=== PATIENT | female | born 1970 | race Caucasian/White ===

== ENCOUNTER 2023-02-16 11:45 | Emergency (ER) | payer OTHER, BC, SELFPAY ==
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
[2023-02-16 11:57] VITALS: BP 124/75; PULSE 70; RESP 20; TEMP 36.4; O2SAT 99
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
[2023-02-16] MEDS: ACETAMINOPHEN 500 MG TABLET 1000 MG PO (14:43)
[2023-02-16] MEDS: KETOROLAC 30 MG/ML VIAL (*BKC) IM (14:44)
[2023-02-16 14:47] VITALS: BP 125/95; PULSE 75; RESP 18; O2SAT 100
[2023-02-16 15:49] VITALS: BP 99/74; PULSE 84; RESP 18; O2SAT 97
== END 2023-02-16 15:51 | disposition home or self-care (01) ==
PROVIDERS: Emergency Provider Physician Assistant; PCP Family Medicine
DX: S76.012A Strain of muscle, fascia and tendon of left hip, initial encounter (principal); V49.40XA Driver injured in collision with unspecified motor vehicles in traffic accident, initial encounter
CPT/HCPCS: 73502; 96372; 99283; A9270; J1885

== ENCOUNTER 2024-05-29 12:50 | Outpatient (CLI) | payer BC, SELFPAY ==
--- OUTSIDE RECORDS SUMMARY | 2024-05-29 13:11 | XMS_ITS | Clinical Summary ---
Author Organization [place] [id number] [facility] Address [address] [place] [address] Care Team Providers Care Accounting Administrator Name Role Phone Vladimir Rodríguez MD Primary Care Provider [phone] Allergies No known active allergies Medications No known medications Active Problems No known active problems Social History Tobacco Use Types Packs/Day Years Used Date Smoking Tobacco: Never Tobacco Cessation:Counseling Given: Not Answered AUDIT-C Answer Date Recorded Q1: How often do you have a drink containing alc ohol? 2-4 times a month 03/22/2023 Q2: How many drinks containi ng alcohol do you have on a typical day when you are drinking? 1 or 2 03/22/2023 Q3: How often do you have si x or more drinks on one occasion? Never 03/22/2023 Personal Safety Answer Date Recorded Have you ever been in or are you currently in a harmful physical or emotional relationship or is someone making you feel afraid or unsafe? Denies 03/22/2023 Comments No Sex and Gender Information Value Date Recorded Sex Assigned at Not on file Legal Sex Female 12:55 PM DESIGN INSERTER Gender Identity Female 07/04/2023 3:14 PM CDT Sexual Orientation Straight 07/04/2023 3: 14 PM CDT Obstetrics History Last Filed Vital Signs Vital Sign Reading Time Taken Comments Blood Pressure 103/63 03/22/2023 11:45 AM DESIGN INSERTER Pulse 72 03/22/2023 11:45 AM DESIGN INSERTER Temperature 36.2 C (97.2 F) 03/22/2023 11:23 AM DESIGN INSERTER Respiratory Rate 22 03/22/2023 11:45 AM DESIGN INSERTER Oxygen Saturation 100% 03/22/2023 11:45 AM DESIGN INSERTER Inhaled Oxygen Concentration - - Weight 59 kg (130 lb) 03/22/2023 8:42 AM DESIGN INSERTER Height 157.5 cm (5' 2 ) 03/22/2023 8:42 AM DESIGN INSERTER Body Mass Index 23.78 03/22/2023 8:42 AM DESIGN INSERTER Plan of Treatment Health Maintenance Due Date Last Done Comments Cervical Cancer Screening 1970 Depression Screening 1970 Hepatitis C Screening 1970 DTaP/Tdap/Td Vaccine (1 - Tdap) 06/19/1982 Hepatitis B Screening 06/19/1989 Regular Well Visit/Exam 18-64 06/19/1989 Zoster Vaccine (1 of 2) 06/19/2021 Covid-19 Vaccine ( season) 2023 12/08/2020, 11/10/2020 Influenza Vaccine (#1) 2023 12/24/2019 Breast Cancer Screening-Mammogram 02/03/2025 02/04/2024, 01/17/2023, 12/14/2021, Additional history exists Colon Cancer Screening-Colonoscopy 03/22/2033 03/22/2023 Pneumococcal vaccine <65 Aged Out No longer eligible based on patient's age to complete this topic Procedures Procedure Name Priority Date/Time Associated Diagnosis Comments SCREENING MAMMOGRAM BILATERAL W STEVEN Schedule Routine, Read Routine (OP Routine) 02/04/2024 11:46 AM DESIGN INSERTER Screening mammogram, encounter for COLONOSCOPY 03/22/2023 10:39 AM DESIGN INSERTER from Last 3 Months or Most Recently Relevant to Health Maintenance Results * Screening Mammogram Bilateral W Steven (02/04/2024 11:46 AM DESIGN INSERTER) Anatomical Region Laterality Modality Breast Bilateral Mammography Narrative 02/05/2024 12:10 PM DESIGN INSERTER Mammogram Technique: Bilateral Digital Breast Tomosynthesis, Bilateral C-view 2D Screening mammogram. Views obtained: bilateral craniocaudal and bilateral mediolateral oblique. Computer Aided Detection was performed. Mammogram Findings: The present examination has been compared to prior imaging studies performed at [facility] on 02/18/2019, 12/14/2021 and 01/17/2023. There are scattered areas of fibroglandular density. There is no suspicious abnormality in either breast. Impression: There is no mammographic evidence of malignancy. Annual screening mammography is recommended. OVERALL FINAL ASSESSMENT: BI-RADS CATEGORY 1: Negative. Procedure Note Isi Morgan MD - 02/05/2024 Mammogram Technique: Bilateral Digital Breast Tomosynthesis, Bilateral C-view 2D Screening mammogram. Views obtained: bilateral craniocaudal and bilateral mediolateral oblique. Computer Aided Detection was performed. Mammogram Findings: The present examination has been compared to prior imaging studies performed at [facility] on 02/18/2019, 12/14/2021 and 01/17/2023. There are scattered areas of fibroglandular density. There is no suspicious abnormality in either breast. Impression: There is no mammographic evidence of malignancy. Annual screening mammography is recommended. OVERALL FINAL ASSESSMENT: BI-RADS CATEGORY 1: Negative. us Self Screening Mammogram IMG MAMMO PROCEDURES Fi nal Result * COLONOSCOPY (03/22/2023 10:39 AM DESIGN INSERTER) Anatomical Region Laterality Modality Other Narrative Procedure Note Ruma Arce MD - 03/22/2023 10:39 AM CST ENDOSCOPY LAB Patient Name: Ann Marie Cintron Procedure Date: 03/22/2023 10:39AM Date of : 1970 Admit Type: Outpatient Age: 52 Gender: Female Attending MD: Ruma Arce M.D. Room: [facility] ENDOSCOPY ROOM 01 Note Status: Finalized Procedure: Colonoscopy Indications: Screening for colorectal malignant neoplasm, Thisis the patient's first colonoscopy Providers: Ruma Arce M.D. Referring MD: Presley Hooper M.D. Medicines: Monitored Anesthesia Care Complications: No immediate complications. Estimated Blood Loss: Estimated blood loss was minimal. Procedure: Pre-Anesthesia Assessment: - Prior to the procedure, a History and Physicalwas performed, and patient medications, allergies and sensitivities were reviewed. The patient'stolerance of previous anesthesia was reviewed. - Immediately prior to administration ofmedications, the patient was re-assessed for adequacy to receive sedatives. The benefits, risks and alternatives of theprocedure and sedation were discussed and informed consentwas obtained. All questions were answered. Please referto the signed informed consent document in the medical record. The scope was passed under direct vision.The [id number] was introduced through the anusand advanced to the terminal ileum. The colonoscopy was performed without difficulty. The quality of thebowel preparation was evaluated using the BBPS (BostonBowel Preparation Scale) with scores of: Right Colon = 3, Transverse Colon = 3 and Left Colon = 3 (entiremucosa seen well with no residual staining, smallfragments of stool or opaque liquid). The total BBPS score equals 9. Findings: The perianal and digital rectal examinations were normal. The terminal ileum appeared normal. Retroflexion in the right colon was performed. Two sessile polyps were found in the transverse colon and ascending colon. The polyps were 2 to 3 mm in size. These polyps were removedwith a jumbo cold forceps. Resection and retrieval were complete. Two sessile polyps were found in the descending colon. The polypswere 4 to 8 mm in size. These polyps were removed with a cold snare.Resection and retrieval were complete. A 12 mm polyp was found in the sigmoid colon. The polyp was semi-sessile. The polyp was removed with a cold snare. Resection and retrieval were complete. For hemostasis, two hemostatic clips were successfully placed. There was no bleeding at the end of theprocedure. The exam was otherwise without abnormality on direct and retroflexion views. The retroflexed view of the distal rectum and anal verge was normaland showed no anal or rectal abnormalities. Impression: - The examined portion of the ileum was normal. - Two 2 to 3 mm polyps in the transverse colon andin the ascending colon, removed with a jumbo cold forceps. Resected and retrieved. - Two 4 to 8 mm polyps in the sigmoid colon and inthe descending colon, removed with a cold snare.Resected and retrieved. - One 12 mm polyp in the sigmoid colon, removedwith a cold snare. Resected and retrieved. Clips wereplaced. - The examination was otherwise normal on directand retroflexion views. - The distal rectum and anal verge are normal on retroflexion view. Recommendation: - Await pathology results. - Repeat colonoscopy in 3 years for surveillancebased on pathology results. Electronically signed by Ruma Arce MD Ruma Arce M.D. 03/22/2023 11:24:55 AM Number of Addenda: 0 Note Initiated On: 03/22/2023 10:39 AM us Ruma Arce MD ENDOSCOPY PROCEDURES Final Resu lt from Last 3 Months or Most Recently Relevant to Health Maintenance Insurance [facility] [employer] ACCESS CHOICE [employer] ACCESS CHOICE Advance Directives For more information, please contact: [phone] * Full Code (Latest Code Status on File) Date Activated Date Inactivated Comments 03/22/2023 8:29 AM 03/22/2023 3:50 PM Care Teams Accounting Administrator Relationship Specialty Start Date End Date Vladimir Rodríguez MD PCP - General 03/24/17
--- OUTSIDE RECORDS SUMMARY | 2024-05-29 13:11 | XMS_ITS | Referral Summary ---
Author Organization [facility] [address] [facility] Address [address] [place] [address] Care Team Providers Care Residency Director Name Role Phone Vladimir Rodríguez MD Primary Care Provider [phone] Allergies No known active allergies Medications No [...] on file Legal Sex Female 12:55 PM SPECIAL AGENT SECRET SERVICE Gender Identity Female 07/04/2023 3:14 PM CDT Sexual Orientation Straight 07/04/2023 3: 14 PM CDT Last Filed Vital Signs Vital Sign Reading Time Taken Comments Blood Pressure 103/63 03/22/2023 11:45 AM SPECIAL AGENT SECRET SERVICE Pulse 72 03/22/2023 11:45 AM SPECIAL AGENT SECRET SERVICE Temperature 36.2 C (97.2 F) 03/22/2023 11:23 AM SPECIAL AGENT SECRET SERVICE Respiratory Rate 22 03/22/2023 11:45 AM SPECIAL AGENT SECRET SERVICE Oxygen Saturation 100% 03/22/2023 11:45 AM SPECIAL AGENT SECRET SERVICE Inhaled Oxygen Concentration - - Weight 59 kg (130 lb) 03/22/2023 8:42 AM SPECIAL AGENT SECRET SERVICE Height 157.5 cm (5' 2 ) 03/22/2023 8:42 AM SPECIAL AGENT SECRET SERVICE Body Mass Index 23.78 03/22/2023 8:42 AM SPECIAL AGENT SECRET SERVICE Plan of Treatment Not on file Procedures Procedure Name Priority Date/Time Associated Diagnosis Comments SCREENING MAMMOGRAM BILATERAL W STEVEN Schedule Routine, Read Routine (OP Routine) 02/04/2024 11:46 AM SPECIAL AGENT SECRET SERVICE Screening mammogram, encounter for COLONOSCOPY 03/22/2023 10:39 AM SPECIAL AGENT SECRET SERVICE from Last 3 Months or Most Recently Relevant to Health Maintenance Results * Screening Mammogram Bilateral W Steven (02/04/2024 11:46 AM SPECIAL AGENT SECRET SERVICE) Anatomical Region Laterality Modality Breast Bilateral Mammography Narrative 02/05/2024 12:10 PM SPECIAL AGENT SECRET SERVICE Mammogram Technique: Bilateral Digital Breast Tomosynthesis, Bilateral C-view 2D Screening mammogram. Views obtained: bilateral craniocaudal and bilateral mediolateral oblique. Computer Aided Detection was performed. Mammogram Findings: The present examination has been compared to prior imaging studies performed at [facility] on 02/18/2019, 12/14/2021 and 01/17/2023. There are [...] compared to prior imaging studies performed at [facility] on 02/18/2019, 12/14/2021 and 01/17/2023. There are scattered areas of fibroglandular density. There is no suspicious abnormality in either breast. Impression: There is no mammographic evidence of malignancy. Annual screening mammography is recommended. OVERALL FINAL ASSESSMENT: BI-RADS CATEGORY 1: Negative. us Self Screening Mammogram IMG MAMMO PROCEDURES Fi nal Result * COLONOSCOPY (03/22/2023 10:39 AM SPECIAL AGENT SECRET SERVICE) Anatomical Region Laterality Modality Other Narrative Procedure Note Ruma Arce MD - 03/22/2023 10:39 AM CST ENDOSCOPY LAB Patient Name: Ann Marie Cintron Procedure Date: 03/22/2023 10:39AM Date of : 1970 Admit Type: Outpatient Age: 52 Gender: Female Attending MD: Ruma Arce M.D. Room: [facility] ENDOSCOPY ROOM 01 Note Status: Finalized [...] The scope was passed under direct vision.The [id number] was introduced through the anusand advanced to [...] 0 Note Initiated On: 03/22/2023 10:39 AM Ruma Arce MD ENDOSCOPY PROCEDURES Final Resu lt from Last 3 Months or Most Recently Relevant to Health Maintenance Insurance [facility] [employer] [facility] [employer] ACCESS CHOICE [employer] ACCESS CHOICE Advance Directives For more information, please contact: [phone] * Full Code (Latest Code Status on File) Date Activated Date Inactivated Comments 03/22/2023 8:29 AM 03/22/2023 3:50 PM Care Teams Residency Director Relationship Specialty Start Date End Date Vladimir Rodríguez MD PCP - General 03/24/17
== END 2024-05-29 12:51 | disposition home or self-care (01) ==
PROVIDERS: PCP Family Medicine; Visit Provider Nurse Practitioner Family
DX: R00.0 Tachycardia, unspecified (principal)
CPT/HCPCS: 93242